=== PATIENT | male | born 1990 | race African-American/Black ===

== ENCOUNTER 2018-02-05 21:55 | Outpatient (CLI) | END 2018-02-05 22:11 | disposition short-term general hospital (02) | LOC: AMBL 21:55 | PROVIDERS: ATTEND Internal Medicine Geriatric Medicine | DX: S13.4XXA Sprain of ligaments of cervical spine, initial encounter (principal); V59.40XA Driver of pick-up truck or van injured in collision with unspecified motor vehicles in traffic accident, initial encounter; S81.811A Laceration without foreign body, right lower leg, initial encounter ==